=== PATIENT | female | born 1970 | race Caucasian/White ===

== ENCOUNTER 2022-11-24 06:10 | Emergency (ER) | payer BC ==
[2022-11-24] MEDS ORDERED: methylPREDNISolone Sodium Succinate 125 MG/2 ML SDV IM ONE (06:15)
[2022-11-24] MEDS ORDERED: EPINEPHrine 1 MG/1 ML Amp IM ONE (06:15)
[2022-11-24] MEDS ORDERED: Take Home: predniSONE 20 MG, 2 Tab Pack PO ONE (07:34)
== END 2022-11-24 07:50 | disposition home or self-care (01) ==
LOC: VM.ED 06:10
DX: T78.3XXA Angioneurotic edema, initial encounter (principal); Z88.0 Allergy status to penicillin
CPT/HCPCS: 96372; 99283; J0171; J2930; J7512